=== PATIENT | male | born 1965 | race Caucasian/White ===

== ENCOUNTER 2018-08-26 09:26 | Outpatient (RCR) | payer BC, SELFPAY ==
[2018-08-26 09:55] VITALS: BP 133/89; PULSE 63; RESP 18; TEMP 37; BMI 29.0
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
== END 2018-08-27 23:59 ==
LOC: WC 09:26
PROVIDERS: Visit Provider Surgery
DX: T23.262A Burn of second degree of back of left hand, initial encounter (principal); X08.8XXA Exposure to other specified smoke, fire and flames, initial encounter; E78.5 Hyperlipidemia, unspecified; I10 Essential (primary) hypertension; Z87.891 Personal history of nicotine dependence
CPT/HCPCS: 11042; 99212; G0463

== ENCOUNTER 2018-09-09 08:15 | Outpatient (RCR) | payer BC, SELFPAY ==
[2018-08-28 02:18] VITALS: BP 133/89; PULSE 63; RESP 18; TEMP 37
[2018-09-09 10:02] VITALS: BP 128/89; PULSE 72; RESP 18; TEMP 37.3
== END 2018-09-26 23:59 ==
LOC: WC 08:15
PROVIDERS: Visit Provider Surgery
DX: Z09 Encounter for follow-up examination after completed treatment for conditions other than malignant neoplasm (principal)